=== PATIENT | female | born 1980 | race Caucasian/White ===

== ENCOUNTER 2020-07-16 14:32 | Emergency (ER) | payer MEDICARE, MEDICAID, SELFPAY ==
[2020-07-16 14:47] VITALS: BP 152/75; PULSE 82; RESP 18; TEMP 36.9; O2SAT 98; BMI 82.5
--- NOTE | 2020-07-16 14:54 | DI.RAD.S_ITS ---
PROCEDURE: XR KNEE RT 3V INDICATIONS: right knee PAIN POP TECHNIQUE: 3 views of the knee were acquired. COMPARISON: None. FINDINGS: Bones: No definite fractures or dislocations. There is osteophytosis in the patellofemoral and lateral compartments. Moderate joint space narrowing is demonstrated in the lateral patellofemoral compartment with mild subchondral sclerosis. No suspicious bony lesions. Soft tissues: Evaluation for a joint effusion is limited due to suboptimal position on the lateral view. No suspicious soft tissue calcifications. IMPRESSION: 1. No definite fracture or dislocation. 2. Osteoarthritic changes including moderate joint space narrowing in the lateral compartment. Dictated by: Dread Smith M.D. on 07/16/2020 at 15:28 Approved by: Dread Smith M.D. on 07/16/2020 at 15:31
[2020-07-16] MEDS: HYDROCODONE/ACET 5/325 TABLET 1 TAB PO (16:00)
[2020-07-16] MEDS: LIDOCAINE PATCH 1 EACH ADH..PATCH TOP (16:00)
[2020-07-16] MEDS: ONDANSETRON 4 MG ODT SL (16:00)
[2020-07-16 17:20] VITALS: BP 141/78; PULSE 88; RESP 18; O2SAT 99
--- NOTE | 2020-07-16 17:22 | PC.NURSE ---
2 alexsandra bandages applied to right knee.
--- NOTE | 2020-07-16 19:37 | ED.LOWEXIN ---
HPI - Extremity Injury (Lower) <KAYLYNN Cortés - Last Filed: 07/16/20 19:44> General Chief Complaint: Extremity Injury, Lower Stated Complaint: right knee pain, tripped over dog. Time Seen by Provider: 07/16/20 15:05 Source: patient and family Mode of arrival: Ambulatory Limitations: no limitations History of Present Illness HPI Narrative: The patient is a 40-year-old female nonsmoker with history of morbid obesity with BMI of 82 who presents with a chief complaint of right knee pain. She states she was tripped over her dog and her right knee twisted and she felt multiple pops in her knee. She did not fall. She states that she ?tweaked? her knee several months ago, did not follow-up with anybody. She states she has been using ibuprofen and tried to stay off of it for a while with no relief. Than the accident happened today and now she is in excruciating pain. She was able to ambulate after, though it is incredibly painful to do so. Related Data Home Medications Medication Instructions Recorded Confirmed buspirone #0 05/24/17 diazepam [Valium] #0 05/24/17 levothyroxine [Synthroid] #0 05/24/17 omeprazole #0 05/24/17 sertraline [Zoloft] #0 05/24/17 Previous Rx's Medication Instructions Recorded hydrocodone-acetaminophen [Hatch] 1 tab PO Q4-6H PRN #7 tab 07/16/20 ketorolac 10 mg PO TID PRN #15 tab 07/16/20 lidocaine 1 patch TOP DAILY PRN #15 each 07/16/20 ondansetron 4 mg PO Q6H PRN #14 tab 07/16/20 Allergies Allergy/AdvReac Type Severity Reaction Status Date / Time No Known Drug Allergies Allergy Verified 07/16/20 14:47 Review of Systems <KAYLYNN Cortés - Last Filed: 07/16/20 19:44> Review of Systems Narrative: GENERAL: Denies chills, fatigue, malaise, fever, sweats. HEENT: Denies sinus pain, ear pain, sore throat, difficulty swallowing, dizziness. RESPIRATORY: Denies dyspnea, cough, wheezing, hemoptysis, sputum. CARDIOVASCULAR: Denies chest pain, palpitations, orthopnea, edema, GASTROINTESTINAL: Denies nausea, vomiting, abdominal pain, diarrhea, constipation, melena. : Denies dysuria, frequency, incontinence, hematuria, urinary retention. MUSCULOSKELETAL: See HPI SKIN: Denies rash, skin lesions, or other NEUROLOGIC: Denies weakness, headache, numbness, change in speech, confusion, seizures, incoordination. PSYCHIATRIC: No concerning psychosocial issues. 12 point review of systems is negative except for those stated above Patient History <KAYLYNN Cortés - Last Filed: 07/16/20 19:44> Social History Smoking Status: Never smoker Smoking Status: Never smoker Substance Use Type: does not use Exam <KAYLYNN Cortés - Last Filed: 07/16/20 19:44> Narrative Exam Narrative: GENERAL: Very pleasant 40-year-old female lying on stretcher HEAD: Atraumatic. Normocephalic. No temporal or scalp tenderness. EYES: Pupils equal round and reactive. Extraocular motions intact. No scleral icterus. No injection or drainage. ENT: Nose without bleeding, purulent drainage or septal hematoma. wearnig a mask. Airway patent. NECK: Trachea midline. No JVD or lymphadenopathy. Supple, nontender, no meningeal signs. CARDIOVASCULAR: Regular rate and rhythm RESPIRATORY: No cough. No increased respiratory effort. No accessory muscle use. EXTREMITIES: General pain to palpation right knee. Able to flex and extend knee fully. Able to lift right leg off of stretcher. Positive pedal pulses right foot. No instability palpated on varus, valgus, posterior anterior drawer test. Helen test difficult due to patient body habitus. NEURO: AOx3. SKIN: No rash or erythema on visible skin. No erythema ecchymosis laceration or abrasion noted on right knee. Initial Vital Signs Initial Vital Signs: Vital Signs Temperature 98.4 F 07/16/20 14:47 Pulse Rate 82 07/16/20 14:47 Respiratory Rate 18 07/16/20 14:47 Blood Pressure 152/75 H 07/16/20 14:47 Pulse Oximetry 98 07/16/20 14:47 <Jessica Loza MD - Last Filed: 07/17/20 08:33> Initial Vital Signs Initial Vital Signs: Vital Signs Temperature 98.4 F 08/28/20 14:47 Pulse Rate 82 07/16/20 14:47 Respiratory Rate 18 07/16/20 14:47 Blood Pressure 152/75 H 07/16/20 14:47 Pulse Oximetry 98 07/16/20 14:47 Course <EMEKA Cortés-BC - Last Filed: 07/16/20 19:44> Orders Ordered: Discontinued Medications Hydrocodone Bitart/Acetaminophen (Hatch 5/325) 1 tab PO NOW ONE Stop: 07/16/20 15:40 Last Admin: 07/16/20 16:00 Dose: 1 tab Documented by: SHEREE Lidocaine (Lidoderm) 1 each TOP NOW ONE Stop: 07/16/20 15:40 Last Admin: 07/16/20 16:00 Dose: 1 each Documented by: SHEREE Ondansetron HCl (Zofran Odt) 4 mg SL NOW ONE Stop: 07/16/20 15:40 Last Admin: 07/16/20 16:00 Dose: 4 mg Documented by: SHEREE Vital Signs Vital signs: Vital Signs - 8 hr 07/16/20 14:47 07/16/20 17:20 Temperature 98.4 F Pulse Rate 82 88 Respiratory Rate 18 18 Blood Pressure 152/75 H 141/78 H Pulse Oximetry 98 99 <Jessica Loza MD - Last Filed: 07/17/20 08:33> Orders Ordered: Discontinued Medications Hydrocodone Bitart/Acetaminophen (Hatch 5/325) 1 tab PO NOW ONE Stop: 07/16/20 15:40 Last Admin: 07/16/20 16:00 Dose: 1 tab Documented by: SHEREE Lidocaine (Lidoderm) 1 each TOP NOW ONE Stop: 07/16/20 15:40 Last Admin: 07/16/20 16:00 Dose: 1 each Documented by: SHEREE Ondansetron HCl (Zofran Odt) 4 mg SL NOW ONE Stop: 07/16/20 15:40 Last Admin: 07/16/20 16:00 Dose: 4 mg Documented by: SHEREE Vital Signs Vital signs: Vital Signs - 8 hr 07/16/20 14:47 07/16/20 17:20 Temperature 98.4 F Pulse Rate 82 88 Respiratory Rate 18 18 Blood Pressure 152/75 H 141/78 H Pulse Oximetry 98 99 MDM - Extremity Injury (Lower) <Lian GuerreroROSAP-BC - Last Filed: 07/16/20 19:44> Imaging Data Extremity x-ray #1: Radiologist's Impression: [address] [place] [id number] XRay Report Signed Patient: Citlalli Day [facility]#: [id number] : 1980Acct:[id number] Age/Sex: 40 / FDate of Service: 07/16/20 Loc: ED Accession Number: [id number] Procedure: XR knee RT 3V Ordering Provider: Jessica Loza MD PROCEDURE: XR KNEE RT 3V INDICATIONS: right knee PAIN POP TECHNIQUE: 3 views of the knee were acquired. COMPARISON: None. FINDINGS: Bones: No definite fractures or dislocations. There is osteophytosis in the patellofemoral and lateral compartments. Moderate joint space narrowing is demonstrated in the lateral patellofemoral compartment with mild subchondral sclerosis. No suspicious bony lesions. Soft tissues: Evaluation for a joint effusion is limited due to suboptimal position on the lateral view. No suspicious soft tissue calcifications. IMPRESSION: 1. No definite fracture or dislocation. 2. Osteoarthritic changes including moderate joint space narrowing in the lateral compartment. Dictated by: Dread Smith M.D. on 07/16/2020 at 15:28 Approved by: Dread Smith M.D. on 07/16/2020 at 15:[address] [facility] Narrative Medical decision making narrative: The patient is a 40-year-old female who presents with a chief complaint of right knee pain. She has a negative x-ray. She is neurovascular intact throughout her stay in the emergency department. There is concern of ligamentous injury, though ligamentous exam is difficult due to body habitus and patient pain. She feels much improved after the above-stated therapies, and I discussed at length rest ice compression elevation. I did give small dose of prescription pain medicine, Toradol and Hatch with strict instructions to not combine with any other NSAIDs. I discussed the x-ray does not rule out any ligamentous injury, pressure to follow up with primary care provider in the next few days, which she is happy to do. Discussed come back to ER for acute concerns. Patient has no questions or concerns upon discharge and states understanding return precautions as well as follow-up care. She was able to ambulate with crutches that she brought from home prior to discharge. Discharge Plan Departure Patient Disposition: Home Clinical Impression: Acute pain of right knee Discharge Date/Time: 07/16/20 17:21 Instructions: How To Perform RICE (Rest, Ice, Compress, Elevate), DI for Knee Pain Activity Restrictions/Additional Instructions: As I discussed, your x-ray shows no acute fracture. This does not rule out a soft tissue injury such as a ligament or tendon injury. It is important that you follow up with primary care provider, especially if worsening or no improvement. There can be fractures that did not show up on initial x-ray. I have given you a prescription of Toradol. This is an NSAID. Do not combine it with other NSAIDs such as Aleve or ibuprofen. I suggest taking it with some food, as it can irritate your stomach. I have given you a prescription of a narcotic for pain. Be aware that this can be constipating and sedating. I encouraged taking with a stool softener, pushing fluids and fiber. Do not take and drive, operate heavy machinery, etc. Do not combine it with any other sedating substances such as alcohol. The combination of narcotics and alcohol and/or other sedatives can be lethal. As discussed, please follow-up with primary care provider in the next few days. Please come back to the emergency department for any acute concerns. Prescriptions: New ketorolac 10 mg tablet 10 mg PO TID PRN (Reason: pain) Qty: 15 RF: 0 ondansetron 4 mg tablet,disintegrating 4 mg PO Q6H PRN (Reason: nausea and vomiting) Qty: 14 RF: 0 hydrocodone-acetaminophen [Hatch] 5-325 mg tablet 1 tab PO Q4-6H PRN (Reason: pain) Qty: 7 RF: 0 lidocaine 5 % adhesive patch,medicated 1 patch TOP DAILY PRN (Reason: pain) Qty: 15 RF: 0 No Action buspirone 5 MG tablet Qty: 0 RF: 0 sertraline [Zoloft] 25 MG tablet Qty: 0 RF: 0 omeprazole 20 MG capsule,delayed release(DR/EC) Qty: 0 RF: 0 levothyroxine [Synthroid] 25 MCG tablet Qty: 0 RF: 0 diazepam [Valium] 2 MG tablet Qty: 0 RF: 0 <Jessica L Laursen, MD - Last Filed: 07/17/20 08:33> Cosign ED Attending Cosignature Attestation: I was immediately available in the department for consultation throughout this patient's visit. I agree with documentation as above. Jessica Loza MD
== END 2020-07-16 17:21 | disposition home or self-care (01) ==
PROVIDERS: Emergency Provider Nurse Practitioner Family
DX: M25.561 Pain in right knee (principal); E66.01 Morbid (severe) obesity due to excess calories
CPT/HCPCS: 73562; 99283; 99284